=== PATIENT | male | born 1990 | race Two or more races ===

== ENCOUNTER 2021-06-25 10:17 | Outpatient (CLI) | payer OTHER | END 2021-06-25 10:18 | disposition home or self-care (01) | LOC: LAB 10:17 | PROVIDERS: ATTEND Obstetrics & Gynecology | DX: Z20.818 Contact with and (suspected) exposure to other bacterial communicable diseases (principal); Z20.828 Contact with and (suspected) exposure to other viral communicable diseases ==

== ENCOUNTER → 2025-05-13 | Emergency (ER) | payer OTHER ==
[~2025-05-13] VITALS: Ht 170.2 cm; Wt 102.1 kg
[~2025-05-13] MED LIST: 0.9 % SODIUM CHLORIDE 1,000 ML IV SCH; ACETAMINOPHEN 500 MG GEL..CAP PO ONE; FAMOTIDINE/PF 20 MG in 0.9 % SODIUM CHLORIDE 8 ML IV PUSH ONE; FAMOTIDINE/PF 20 MG/2 ML VIAL ONE; KETO10TA2 PO; KETOROLAC TROMETHAMINE 30 MG VIAL IU ONE; KETOROLAC TROMETHAMINE 30 MG VIAL ONE; ONDANSETRON HCL 2 MG/ML VIAL ONE; ONDANSETRON HCL 4 MG in 0.9 % SODIUM CHLORIDE 50 ML IV ONE; PEPCID AC20 MG PO; PYRIDIUM200 MG PO; TAMS0.4C PO; TAMSULOSIN HCL 0.4 MG CAP PO ONE
[2025-05-13 23:09] VITALS: BP 141/88; O2SAT 99
[2025-05-14 01:13] LABS: BASO % 0.7 % (0.1-1.2); EOS # 0.14 (0.04-0.54); EOS % 1.6 % (0.7-7.0); LYMPH # 2.14 (1.18-3.74); LYMPH % 25.1 % (19.3-53.1); MEAN PLATELET VOLUME 10.80 fl (9.4-12.4); MONO # 0.64 (0.24-0.82); MONO % 7.5 % (4.7-12.5); NEUT # 5.47 (1.56-6.13); NEUT % 64.4 % (34.0-71.1); RED CELL DISTRIBUTION WIDTH 12.7 % (11.6-14.4)
[2025-05-14 01:41] LABS: INR 0.98
[2025-05-14 01:45] LABS: ALT/SGPT 66.0 U/L (12-78); AST/SGOT 29.0 U/L (15-37); BILIRUBIN TOTAL 0.93 mg/dL (0.3-1.2); BUN CREA RATIO 13.0 (7.0-25.0); CREATININE SERUM 1.02 mg/dL (0.70-1.30); GFR 84.11; GLOBULINA 3.4 G/DL (2.4-3.5); GLUCOSE FASTING 177.0 mg/dL (65-100); OSMOLALITY SERUM 291.0 MOSM/KG (275-295)
[2025-05-14 02:43] LABS: URINE APPEARANCE Cloudy; URINE BILIRRUBIN Negative (NEGATIVE); URINE BLOOD Negative; URINE COLOR Yellow; URINE GLUCOSE Negative (NEGATIVE); URINE KETONE Negative (NEGATIVE); URINE LEUKOCYTE Negative; URINE NITRATE Negative; URINE PROTEIN Trace (NEGATIVE); URINE UROBILINOGEN 1.0 E.U./dl
[2025-05-14 02:47] LABS: URINE BACTERIA 55.1 uL (0.0-1933); URINE EPITHELIAL CELLS 12.9 uL (0.0-38.8); URINE RBC 5.7 uL (0.0-20.8); URINE WBC 19.5 uL (0.0-23.2)
[2025-05-14 03:09] LABS: URINE CAST 0.43 uL (0.0-1.40); URINE CRYSTALS MANY /HPF
== END | disposition home or self-care (01) ==
LOC: ER 22:29
PROVIDERS: General Practice
DX: N20.0 Calculus of kidney (principal)